=== PATIENT | male | born 1960 | race Caucasian/White ===

== ENCOUNTER 2017-05-27 20:32 | Inpatient (IN) | payer OTHER, MEDICARE ==
[~2017-05-27] VITALS: Ht 182.8 cm; Wt 101.8 kg
--- NOTE | ~2017-05-27 | PR ---
[place], [place] PROGRESS NOTE NAME: TREVON MIR UNIT #: [id number] ROOM: 310 DOCTOR: SHASHA RENTERIA MD BIRTHDATE: [birth year] DOS: 05/31/2017 CHIEF COMPLAINT: "I don't like that Depakote, it makes me sick, can we stop that please?" SUMMARY OF THE VISIT: The patient was interviewed in the dining area where he sat waiting for his breakfast. He was very vehement that he did not like taking the Depakote that he did not like how it made him feel. He still reports he is having continued sleep issues with difficulty falling asleep and staying asleep and is waking up tired. He does remain somewhat paranoid and suspicious and is guarded at times with his presentation. MENTAL STATUS: He is alert and oriented to person, place, but not necessarily totally to time. Mood does seem to be trending towards euthymia. Affect is more appropriate. There are no symptoms of drew or hypomania. There are no overt auditory hallucinations noted, but he does remain guarded, suspicious and delusional. Memory has mild gaps. PLAN: I will discontinue the Depakote as he is very vehement that he does not like the side effects that it causes. I will maximize out the Vraylar from 4.5 mg at bedtime to 6 mg at bedtime. I need to find out when he received his last Invega injection to determine whether or not we need to reload him now and then decide when will be the Invega Sustenna ____ every 3-month injection. We will engage in individual and ashley milieu activity, returning home or the least restrictive environment when stable. SHASHA RENTERIA MD CM:PNTRANS [id number] SHASHA RENTERIA MD 05/31/17 0959 interface
--- NOTE | ~2017-05-27 | PR ---
[place], [place] PROGRESS NOTE NAME: TREVON MIR UNIT #: [id number] ROOM: 310 DOCTOR: SHASHA RENTERIA MD BIRTHDATE: [birth year] DOS: 05/29/2017 CHIEF COMPLAINT: "I ain't sleep well." SUMMARY OF THE VISIT: The patient was interviewed as he sat in his room. He sat at the edge of his bed and he engaged in conversation. He was somewhat avoidant and he gave very superficial conversation, but he was mainly fixated on the fact that he tossed and turned throughout the night and did not sleep well. His thoughts tend to still be somewhat fragmented and disjointed. He convincingly denies medication side effects. MENTAL STATUS: He is alert and oriented to person, place and time. Mood does still seem to be somewhat labile and affect is inappropriate. He has a hard time completing a thought and he sometimes gets derailed. There is a great deal of thought processing difficulty and sparsity of thought. He does seem to be responding to internal stimuli. There is no mood lability. There is no hypomania or drew noted. Likewise, there are no medication side effects noted. Memory for the most part is intact. PLAN: I will continue to increase the Vraylar moving it from 3 mg at bedtime to 4.5 mg at bedtime with a target dose of 6 mg at bedtime in mind. I will change his Depakote from Depakote 500 mg 3 times a day to Depakote ER 2000 mg at bedtime. This should lessen any potential daytime sedation and increase the amount of sedation he receives at bedtime. I will also order p.r.n. Rozerem as a nonaddicting sleep aid and see if this measure allows him to sleep more adequately. We will engage him in individual and ashley milieu activity with the ultimate plan to return to the least restrictive environment when psychiatrically stable. SHASHA RENTERIA MD CM:PNTRANS [id number] SHASHA RENETRIA MD 05/29/17 1145 interface
--- NOTE | ~2017-05-27 | DS ---
[place], [place] DISCHARGE SUMMARY NAME[facility] [id number] UNIT #: [id number] ROOM: 310 DOCTOR: SHASHA RENTERIA MD BIRTHDATE: [birth year] DOS: 06/02/2017 CHIEF COMPLAINT: "I just started hearing voices." HISTORY OF PRESENT ILLNESS: This is a 57-year-old white male who is readmitted to the [facility]. He presented to the emergency room at [facility] complaining of increased and persistent auditory hallucinations. The voices have been commenting on his behavior and telling him to do chores and other things around the house. They have been interrupting his sleep, so that he is having himself so preoccupied he is unable to function. He states sometimes he feels like he is [place] and a bad biker man or a lump inspector that has been shot and left for along the highway. He was very bizarre upon admission. He was religiously preoccupied and delusional. He was readmitted now to stabilize on medication, returning home once stable. PAST MEDICAL HISTORY: Remarkable for coronary artery disease, chronic kidney disease stage 3, diabetes, hyperlipidemia, hypertension, hypothyroidism, obesity, vitamin D deficiency, nicotine dependence as well as a lengthy history of schizoaffective disorder. SUMMARY OF HOSPITAL COURSE: The patient was admitted to the unit where I lowered his Remeron from 30 to 15 mg at bedtime to improve his sleep dramatically. I started him on Vraylar 1.5 mg at bedtime to augment the Invega. He was receiving an Invega long-acting decanoate prep that was every 3 months and this seemed not to be as effective as the monthly Invega Sustenna. For this reason, I restarted him on oral Invega just to make certain that he was tolerating it well and eventually reloaded him with Invega Sustenna 234 mg. Depakote was maintained throughout his stay; however, he did request that I discontinued that as he did not like how the Depakote made him feel. Given the fact that he was on both the Vraylar and the Invega and these seemed to be much more effective at breaking the psychosis, I had no problem discontinuing his Depakote. The Vraylar was gradually increased to its maximum dose of 6 mg at bedtime. With the combination of these 2 antipsychotics, his psychosis broke. He no longer was religiously preoccupied. He was sleeping through the night. He was engaging in goal-directed conversation and he made extremely good plans for the future and voiced a willingness and a readiness to return home. He convincingly denied tardive dyskinesia, extrapyramidal symptoms, sedation or somnolence. MENTAL STATUS AT DISCHARGE: The patient was alert and oriented times 3. Mood was euthymic. Affect appropriate. There were no symptoms of drew or hypomania. There were no overt auditory or visual hallucinations. No delusions, no paranoia. Short, intermediate, and long-term memory were intact. FINAL DIAGNOSES: Schizoaffective disorder with acute exacerbation. PLAN: All of his prescriptions have been E-scribed to [facility] in [place], [place]. He will have followup at [facility]. [place], [place] DISCHARGE SUMMARY NAME: TREVON MIR UNIT #: [id number] ROOM: 310 DOCTOR: SHASHA RENTERIA MD BIRTHDATE: [birth year] SHASHA RENTERIA MD CM:VIOLETTE 3 SHASHA RENTERIA MD 06/02/1734 interface
--- NOTE | ~2017-05-27 | PR ---
[place], [place] PROGRESS NOTE NAME: TREVON MIR UNIT #: [id number] ROOM: 310 DOCTOR: SHASHA RENTERIA MD BIRTHDATE: [birth year] DOS: 06/01/2017 CHIEF COMPLAINT: "I think I'm better, I want to go back home with my ." SUMMARY OF THE VISIT: The patient was interviewed in the dining area where he sat waiting for his breakfast. He engaged readily in conversation. He is reporting that he is sleeping better and overall is feeling better. He seems more goal directed in his speech this morning. He convincingly denies any medication side effects and is happy that the Depakote has been discontinued. MENTAL STATUS: He is alert and oriented with some mild time gaps. Mood does seem to be strongly trending towards euthymia. Affect is more appropriate. There is no drew or hypomania. His delusional system seems to be lessening in frequency and intensity. There are no suicidal or homicidal thoughts. Memory for the most part is intact. PLAN: I will maintain his current psychotropic regimen, continue to engage in individual and ashley milieu activity, finalize discharge plans and then discharge home when stable. SHASHA RENTERIA MD CM:PNTRANS [id number] SHASHA RENTERIA MD 06/01/17 0835 interface
--- NOTE | ~2017-05-27 | WRIGHTHP ---
[place], [place] PATIENT HISTORY AND PHYSICAL EXAM NAME: TREVON MIR UNIT #: [id number] ROOM: 310 DOCTOR: SHASHA RENTERIA MD BIRTHDATE: [birth year] DOS: 05/28/2017 CHIEF COMPLAINT: "I just started hearing voices." HISTORY OF PRESENT ILLNESS: This is a 57-year-old white male who is readmitted to the [facility]. The patient presented to the emergency room complaining of increased and persistent auditory hallucinations. The voices have been commenting on his behavior and telling him to do chores and do other things around the house. They have been interrupting his sleep, so that he is having problems falling asleep, staying asleep, and he has been waking up early. He has found himself increasingly preoccupied and unable to function and even attend to his basic ADLs. He states he sometimes feels like he is [place], a bad biker man or a loom starter that has been shot and left for , but lives in the [place]. He is very religiously preoccupied and very delusional. He is admitted now to attempt to restabilize on medication, rule out organic factors and engage in individual and ashley milieu activity. PAST MEDICAL HISTORY: Remarkable for coronary artery disease, chronic kidney disease stage 3, diabetes, hyperlipidemia, hypertension, hypothyroidism, obesity, vitamin D deficiency, nicotine dependence and a lengthy history of schizoaffective disorder. MENTAL STATUS: The patient is alert and oriented to person, place, and time. Mood is overwhelmingly depressed with anxious overtones. He endorses significant delusions as well as significant auditory hallucinations. He, however, denies any suicidal thoughts or homicidal thoughts. Memory for the most part is intact. DIAGNOSIS: Schizoaffective disorder. PLAN: I will lower his Remeron from 30 to 15 mg at night to further aid sleep while increasing his Vraylar from 1.5 to 3 mg at bedtime. His Depakote level was subtherapeutic at 15 leading me to believe he has been somewhat noncompliant with his meds. I will still increase his Depakote from 500 mg twice a day to 500 mg 3 times a day. He has been receiving the Invega injection that is given every 3 months and is due for an injection later this month. We will consider reloading him then with the Invega long-acting decanoate form before he is discharged. We will engage in individual and ashley milieu activity with the plan to return home when stable. [place], [place] PATIENT HISTORY AND PHYSICAL EXAM NAME: TREVON MIR UNIT #: [id number] ROOM: 310 DOCTOR: SHASHA RENTERIA MD BIRTHDATE: [birth year] SHASHA RENTERIA MD CM:HISPHYS:PATIENT HISTORY AND PHYSICAL EXAMINATION [id number] SHASHA RENTERIA MD 05/28/17 1144 interface
[~2017-05-27 20:32] MED LIST: ANBESOL MM; ASPIRIN ADULT L81 M1 PO; CLOZAPINE200 MG PO; DIVALPROEX SOD500 MG PO; Depakote ER500 MG PO; FENOFIBRATE120 MG PO; INVEGA SUSTENN156 MG IM; INVEGA6 MG PO; LIPITOR40 MG PO; LISINOPRIL5 MG PO; LOPRESSOR25 MG PO; METOPROLOL TART50 M1 PO; MIRTAZAPINE15 M2 PO; PLAVIX75 M1 PO; TRIHEXYPHENIDYL2 M3 PO; VISTARIL25 M2 PO; VITAMIN D50000 I3 PO; ZIPRASIDONE HCL80 M1 PO
--- NOTE | 2017-05-27 21:45 | NUR ---
TREVON MIR a 57 year old M admitted via stretcher from the ADMITTING as a voluntary admission. Arrived on unit at 2139. ALLERGIES: IODINE, IVP DYE. Vital signs are: [id number] 135/68. The client signed the following forms with stated understanding: Authorization For The Release of Medical Information, Clothing List, Consent to Voluntary Admission and Hospitalization, Consent and Release Forms/Receipt of Rights, Acknowledgement of Advance Directive Information, Behavioral Health Consent Form, and Informed Consent of Medications. [facility]. A search was conducted and hazardous articles were removed. Client was oriented to the unit. PATRICIA FAM
[2017-05-27 21:47] VITALS: BP 135/68
[2017-05-27] MEDS ORDERED: FENOFIBRATE MI134 MG PO (23:13)
[2017-05-27] MEDS ORDERED: REMERON30 M1 PO (23:14)
[2017-05-27] MEDS ORDERED: Synthroid,Levo25 MCG PO (23:15)
--- NOTE | 2017-05-27 23:35 | NUR ---
PT ORIENTED X4. BROUGHT PATIENT TO [facility] WITH A CHIEF COMPLAINT OF "RACING THOUGHTS" AND INTERNAL VOICES TELLING THE PATIENT TO "DO CHORES." PT HAS A LONG HISTORY OF SCHIZOAFFECTIVE DISORDER. PT EXHIBITS SOME PRESSURED SPEECH. AFFECT IS APPROPRIATE TO CONTEXT. PT DENIES SI, HI, BUT DOES REPORT PARANOID DELUSIONS THAT "SOMETHING MAY HAPPEN TO ME, MAYBE MY HEART." PT IS PLEASANT, REPORTING A POSITIVE OUTLOOK ON LIFE WITH SOME UNDERLYING DEPRESSION RELATED TO HIS UNABILITY TO CONTROL HIS RACING THOUGHTS. PT IS PLEASANT, COOPERATIVE, AND ABLE TO ANSWER ALL QUESTIONS APPROPRIATELY. PT IS CURRENTLY REPORTING SYMPTOMS OF ANXIETY. NURSE EDUCATED PT REGARDING PURPOSE OF MEDICATIONS ORDERED. PT VERBALIZED UNDERSTANDING AND REPORTED THE NECESSITY OF TAKING ALL PRESCRIBED MEDICATIONS.
--- NOTE | 2017-05-27 23:57 | NUR ---
PT REPORTS INCREASE IN ANXIETY. PRN ATIVAN TO BE ADMINISTERED. CONTINUE TO MONITOR FOR MEDICATION EFFECTIVENESS.
[2017-05-28 02:02] VITALS: BP 135/68
--- NOTE | 2017-05-28 02:53 | NUR ---
ATIVAN EFFECTIVE. PT RESTING QUIETLY WITH EYES SHUT
--- NOTE | 2017-05-28 03:06 | NUR ---
24HR CHART CHECKS COMPLETE
--- NOTE | 2017-05-28 06:13 | NUR ---
PT SLEPT >7HRS, UNINTERRUPTED
[2017-05-28 07:26] LABS: BASO # 0.1 10*3/uL (0.0-0.1); BASO % 0.8 % (0.0-1.0); EOS # 0.1 10*3/uL (0.0-0.4); EOS % 1.5 % (1.0-4.0); HEMATOCRIT 36.2 % (42.0-52.0); HEMOGLOBIN 12.5 g/dl (14.0-18.0); LYMPH # 1.7 10*3/uL (1.3-4.4); LYMPH % 27.4 % (27.0-41.0); MEAN CELL VOLUME 92.3 fl (80.0-94.0); MEAN CORPUSCULAR HGB 31.9 pg (27.0-31.0); MEAN CORPUSCULAR HGB CONC 34.5 g/dl (33.0-37.0); MONO # 0.7 10*3/uL (0.1-1.0); MONO % 10.7 % (3.0-9.0); NEUT # 3.6 10*3/uL (2.3-7.9); NEUT % 59.4 % (47.0-73.0); PLATELET COUNT AUTOMATED 165 10*3/uL (130-400); RED BLOOD COUNT 3.92 10*6/uL (4.50-5.90); RED CELL DISTRI WIDTH 12.4 % (0-14.5); WHITE BLOOD COUNT 6.1 10*3/uL (4.8-10.8)
[2017-05-28 07:48] LABS: CREATININE 1.92 mg/dL (0.70-1.30); POTASSIUM 4.3 mmol/L (3.5-5.1)
[2017-05-28 07:55] LABS: THYROID STIM HORMONE (HS) 3.11 uIU/ml (0.358-4.75)
[2017-05-28 08:00] VITALS: BP 101/64
[2017-05-28 08:46] LABS: VITAMIN D, 25-HYDROXY 34.8 ng/mL (30-100)
[2017-05-28 09:23] LABS: BILIRUBIN NEGATIVE (NEGATIVE); BLOOD NEGATIVE (NEGATIVE); CLARITY CLEAR (CLEAR); COLOR YELLOW (YELLOW); GLUCOSE NEGATIVE (NEGATIVE); KETONE NEGATIVE (NEGATIVE); LEUKO ESTERASE NEGATIVE (NEGATIVE); NITRITE NEGATIVE (NEGATIVE); SPECIFIC GRAVITY 1.015 (1.005-1.030)
--- NOTE | 2017-05-28 09:25 | NUR ---
PHYSICAL THERAPY PAtient evaluated on 3, full evalution to follow. Continue with PT as per plan of care with fall and unit three precautions. Home with as prior with home health RN prn. PAtient is low complexity via chart review, tests and evaluation [id number]. Thank you for this referral. nini Jackson,PT
--- NOTE | 2017-05-28 11:22 | NUR ---
Goals/Exercise/Reminiscing Patient was in attendence as well as actively participated. Patient interacted well with other patients showing no signs of anxiety. Patient did not report any paranoid delusions while in group
--- NOTE | 2017-05-28 11:46 | NUR ---
Occupational Therapy evaluation completed this date on 3 with full eval to follow. Precautions include 3N, delusional thoughts, impaired ADLs s/p CVA, low complexity level 08334. Recommend OT per POC and return home with upon d/c. Thank you for this referral. Glenny Mayer OTR/L
--- NOTE | 2017-05-28 12:23 | NUR ---
CLINICALS GIVEN TO MEG AT [facility]. APPROVED STAY THROUGH WEDNESDAY WITH NEXT REVIEW DUE WEDNESDAY.
[2017-05-28 20:04] VITALS: BP 107/62
--- NOTE | 2017-05-29 01:29 | NUR ---
PT REQUESTED "SOMETHING FOR A COUGH". TEASALON PERLE WAS GIVEN AT THIS TIME PER PRN ORDER. PT HAS A DRY NON PRODUCTIVE COUGH. WILL MONITOR FOR EFFECTIVENESS OF MEDICATION.
--- NOTE | 2017-05-29 04:53 | NUR ---
24 HR chart check completed.
--- NOTE | 2017-05-29 05:46 | NUR ---
PT SLEPT APPROXIMATELY 6 HOURS THIS SHIFT. NO S/S OF DISTRESS NOTED. NO C/O PAIN. MEDICATION COMPLIANT. A&O X 3. INTERACTIVE WITH PERIODS OF PARANOIA. AUDITORY HALLUCINATIONS TELLING HIM TO DO CHORES. PT UP AND DOWN OUT OF BED AND SITTING IN QUIET ROOM. SEE [facility] FLOWSHEET FOR SPECIFIC MONITORING. Q15 MINUTE SAFETY CHECKS MAINTAINED.
[2017-05-29 07:51] VITALS: BP 110/64
--- NOTE | 2017-05-29 11:51 | NUR ---
DR. HEREDIA AND DR. DUMAS ON UNIT TO SEE PT AT THIS TIME.
--- NOTE | 2017-05-29 15:37 | NUR ---
PT IS ALERT AND ORIENTED TO PERSON, PLACE, TIME AND SITUATION. MEMORY APPEARS INTACT. RESPIRATIONS EASY ON ROOM AIR. MOOD IS STABLE, AFFECT IS INAPPROPRIATE AT TIMES. SPEECH IS OF NORMAL VOLUME, RAPID AT TIMES WITH WORD CLANGING NOTED. FLIGHT OF IDEAS NOTED. PT REMAINS CALM AND COOPERATIVE WITH STAFF. MEDICATION COMPLIANT. PT REPORTS AUDITORY HALLUCINATIONS, STATES "YES, I HEAR VOICES." WHEN QUESTIONED WHAT THE VOICES ARE SAYING, PT STATES "I SING THIS SONG BY THE BEATLES TO OVERRIDE THEM." PT THEN BEGAN SINGING. PT DENIES SI/HI. PT HAS VOICED VARIOUS GRANDIOSE DELUSIONS THROUGHOUT THE SHIFT, MAKING STATEMENTS SUCH "IT'S HARD BEING THE YOVANY OF [employer]" AND "I MAKE MILLIONS, AND MILLIONS AND MILLIONS AND BILLIONS." REALITY PRESENTED BY STAFF WHEN THESE DELUSIONS OCCUR AND PT STATES "YES I KNOW I'M IN THE HOSPITAL. I DON'T BELONG HERE THOUGH." PT ALSO CAME TO NURSES STATION AND STATES TO THIS NURSE "I THINK ABOUT GUNS A LOT AT HOME. I THINK SOMEONE SHOT ME AND LEFT ME FOR . BUT THEY DIDN'T. I'M OKAY. I JUST THINK LIKE THAT SOMETIMES." PT STATES THESE PARANOID THOUGHTS CONTINUE TO OCCUR AT TIMES, PT STATES "I LIKE TO LISTEN TO MUSIC." CD PLAYER/RADIO PROVIDED FOR PT FOR RELAXATION WITH SUPERVISON. PT IS AMBULATORY WITH STEADY GAIT, INDEPENDENT WITH ADLS, FEEDS SELF, DISPLAYS GOOD APPETITE WITH ADEQUATE FLUID INTAKE. NO DISTRESS NOTED. Q15 MIN SAFETY CHECK MAINTAINED, REFER TO [facility] FLOWSHEET FOR SPECIFIC MONITORING.
--- NOTE | 2017-05-29 18:00 | NUR ---
PT GIVEN TESSALON PEARLE ONE CAP PO AT THIS TIME PER PT REQUEST FOR C/O COUGH.
[2017-05-29 20:00] VITALS: BP 110/57
--- NOTE | 2017-05-30 00:16 | NUR ---
24 HR chart check completed.
--- NOTE | 2017-05-30 00:44 | NUR ---
PT C/O INABILITY TO SLEEP & WAS MEDICATED WITH ROZEREM 8 MG PO @ 2157 WHICH WAS EFFECTIVE & PT HAS BEEN SLEEPING QUIETLY SINCE 2229.
--- NOTE | 2017-05-30 06:46 | NUR ---
ROZEREM WAS EFFECTIVE & PT STATED THAT HE SLEPT BETTER THAN THE NIGHT BEFORE. NOTED TO SLEEP PAST 0 & WAS UP X3 BRIEFLY & SPOKE TO STAFF. STATED THAT HE THINKS ABOUT TOO MANY THINGS & HIS MIND DOESN'T REST THAT WELL. USED BATHROOM INDEPENDENTLY & CONTINENT OF URINE X 2. COMPLIANT WITH AM MEDICATION.
[2017-05-30 07:47] VITALS: BP 117/59
--- NOTE | 2017-05-30 10:10 | NUR ---
DR. ALCARAZ AND DR. DUMAS ON UNIT TO SEE PT AT THIS TIME.
--- NOTE | 2017-05-30 15:32 | NUR ---
PT IS ALERT AND ORIENTED TO PERSON, PLACE, TIME AND SITUATION. MEMORY APPEARS TO BE INTACT. RESPIRATIONS EASY ON ROOM AIR. MOOD IS STABLE, AFFECT IS APPROPRIATE. SPEECH IS WNL AND COHERENT, ABLE TO MAKE NEEDS KNOWN WITHOUT DIFFICULTY. PT DENIES SI/HI. PT REPORTS AUDITORY HALLUCINATIONS AND "IMAGES OF GRANDIOR." PT STATES "I FEEL LIKE I'M BETTER THAN EVERYONE ELSE." PT CONTINUES TO VOICE VARIOUS DELUSIONS THROUGH OUT THE DAY. 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 PT CONTINUES TO PRESENT WITH FLIGHT OF IDEAS AND WORD CLANGING, PT MAKES STATEMENTS SUCH "I'M THE WONDER MAN, LIKE WONDER BREAD, I'M WONDERFUL." AND "OUR FOOTBALL TEAM IS THE BLUE DEVILS, I'M THE DEVILS MAN, THE DEVIL WEARS RED." PT IS MEDICATION COMPLIANT WITHOUT DIFFICULTY. AMBULATORY WITH STEADY GAIT, INDEPENDENT WITH ADLS, CONTINENT OF BOWEL AND BLADDER, FEEDS SELF, DISPLAYS GOOD APPETITE WITH ADEQUATE FLUID INTAKE. NO DISTRESS NOTED. Q15 MIN SAFETY CHECKS CONTINUE PER POLICY. REFER TO [facility] FLOWSHEET FOR SPECIFIC MONITORING.
--- NOTE | 2017-05-30 16:51 | NUR ---
SHIFT CHART CHECK COMPLETED.
[2017-05-30 20:07] VITALS: BP 110/52
--- NOTE | 2017-05-30 21:09 | NUR ---
24 HR chart check completed.
--- NOTE | 2017-05-31 05:11 | NUR ---
PT HAS BEEN OBSERVED ON Q 15 MIN CHECKS & WAS NOTED TO BE SLEEPING IN BED @ 2230. HAS BEEN UP X 4 & WENT TO QUIET ROOM & SAT IN A CHAIR & HAS FALLEN ASLEEP WHILE SITTING IN THE CHAIR. PT APPEARS DROWSY. STATED THAT HE NAPS THROUGHOUT THE DAY & CANT SLEEP THAT WELL AT NIGHT BECAUSE HE "THINKS ABOUT ALOT OF THINGS". PT ENCOURAGED TO ATTEND ACTIVITIES THROUGHOUT THE DAY & TRY TO REMAIN AWAKE SO HE CAN SLEEP BETTER AT NIGHT. HAS SLEPT APPROX 4 HOURS THROUGHOUT THE NIGHT.
--- NOTE | 2017-05-31 07:53 | NUR ---
05/28/17 Afternoon Coping Skills Patient was in attendence for group.Patient participated showing no signs of anxiety
--- NOTE | 2017-05-31 07:53 | NUR ---
PHYSICAL THERAPY Adam was seen this AM 1:1 for his therapy session. All Pt's transfer and gait with independent no LOB through treatment. Pt was independent from his room down to the day room for his breakfast 90' independent no LOB. With pt in sitting teaching bilaterasl hamstring stretching. Start with one leg at a time up in another chair and hold to tolerance then switch working bilateral hamstring and did very well. Passive into o extension this AM. CRISTINE ABEL LICENSING AND REGISTRATION DIRECTOR.
[2017-05-31 08:12] VITALS: BP 117/58
--- NOTE | 2017-05-31 09:43 | NUR ---
PATIENT SEEN 1:1 15 MINUTES THIS DATE. PATIENT IDENTIFIED BY NAME AND DATE OF . PATIENT COMPLETED ACTVIITY TO TOLERANCE WITH FREQUENT REDIRECTION TO MAINTAIN ATTENTION TO TASK. PATIENT COMPLETED LUE AROM ALL PLANES 2 SETS X 10 REPS SEATED WITH FREQUENT REST BREAKS AND C/O FATIGUE. UE AROM INCLUDED SHOULDER FLEX/EXT, SHOULDER RETRACT/PROTRACT, ELBOW FLEX/EXT, WRIST FLEX/EXT, AND HAND FLEX/EXT WITH MOD VERBAL CUES TECHNIQUE AND FORM. PATIENT VERBALIZING THAT WAS ALL HE COULD DO TODAY. MIKE ORDONEZ/Mc
--- NOTE | 2017-05-31 10:01 | NUR ---
Spoek with pt. mom per son permission who states that pt. gets shots every 3 months and that she thinks he may need them more often. SW will let Dr. arvizu know. RUPAL attempted to reach pt , but the number in chart is pt's mother. pt mother, Kassy to tell pt , Brynn, to call RUPAL.
--- NOTE | 2017-05-31 13:07 | NUR ---
Goals/Exercise/Positive Thoughts & Affirmations Patient was in attendence as well as participated in group. Patient also took notes about group. Patient became upset at one point over missing his grandson. Patient started to cry. Patient then apologized for crying saying "men dont cry." assured patient men do cry. OT Abner came into room at that point and AC requested he input if men cry or not. OT Abner was very positive with patient assuring him that men do have feelings are sensitive and cry. Patient seemed reassured after speaking with Abner
--- NOTE | 2017-05-31 13:45 | NUR ---
INSURANCE HAS APPROVED THROUGH 06-02-17 WITH REVIEW DUE SAME DAY.
--- NOTE | 2017-05-31 14:22 | NUR ---
RUPAL rec'd pc from pt. -Brynn in regards to pt's status and when d/c may be. pt Charli states that she can come up and transport pt. home when ready. Dr. Neil looking at possibly by the end of the week.
--- NOTE | 2017-05-31 15:08 | NUR ---
Positive Self-Talk Patient was in attendence for group as well as participated. Patient can think of many positive things about himself bringing humor with it. Patient very positive,upbeat showing no signs of anxiety or reports of paranoid delusions
--- NOTE | 2017-05-31 16:18 | NUR ---
A/O X3, PLEASANT, COOPORATIVE, INCOTNROL, PARTICIPATING, MED COMPLAINT, C/O ABOUT THE INVEGA SUSTATANA SHOT, DENIES SI/HI, DENIES ANY HALLUCINATIONS, CONTINENT, SHOWERED, TALKS SOFTLY.
[2017-05-31 19:48] VITALS: BP 123/69
--- NOTE | 2017-06-01 06:19 | NUR ---
24 HR chart check completed.
--- NOTE | 2017-06-01 06:23 | NUR ---
PT HAS BEEN OBSERVED ON Q 15 MIN CHECKS & HAS SLEPT QUIELTY THROUGHOUT THE SHIFT PAST 2114 WITH A FEW BRIEF AWAKENINGS & AMBULATING IN THE JARA BRIEFLY. HAS RETURNED TO HIS BED & SLEPT BETTER THAN THE PAST 2 NIGHTS.
[2017-06-01 07:55] VITALS: BP 123/61
--- NOTE | 2017-06-01 08:30 | NUR ---
SOREN BIANCHI ELECTRICIAN RADIO ON UNIT TO SEE PATIENT.
--- NOTE | 2017-06-01 09:32 | NUR ---
PATIENT REFUSED MORNING BP MEDICATION, BP 109/74.
--- NOTE | 2017-06-01 09:39 | NUR ---
PATIENT IN DAY ROOM AND DECLINED THERAPY THIS DATE STATING THAT HE WAS WORN OUT. WILL TRY BACK AT A LATER DATE. MIKE ORDONEZ/Mc
--- NOTE | 2017-06-01 10:30 | NUR ---
pt to be d/c'ed tomorrow via , ophelia. SW left for family to call and verify that 1pm will be a good time for pickup. SW spoke with pt and explained once again that he needs to take both his pills and get a shot because they each have a purpose of helping him with his health issues and his "thinking" issues. pt states "Ok, I think i need a shot once a month then". Tim passed his request along to Dr. arvizu.
--- NOTE | 2017-06-01 11:06 | NUR ---
PHYSICAL THERAPY Mr Muse seen this AM 1:1. Pt is independent with everything, ambulating the halls, in and out of his bed independent with no LOB. To and from the day room for his meals independent. This AM went over againg with act bilateral hamstring stretch and having no problem with this and no complaint of any pain, Adam said that he is to be D/C tomorrow. CRISTINE ABEL BUNG REMOVER.
--- NOTE | 2017-06-01 11:08 | NUR ---
PATIENT RECIEVED INVEGA SUSTAINA 234MG IM TO RIGHT DELTOID, TOLERATED WELL.
--- NOTE | 2017-06-01 11:33 | NUR ---
Holiday remenissing/orientation and goals Patient present and attended group with appropriate behavior. Patient at times tearful with discussion however easily redirected. Patient reports no paranoia throughout group.
--- NOTE | 2017-06-01 12:53 | NUR ---
PATIENT IS ALERT TO PERSON, PLACE AND TIME. MOOD IS ANXIOUS AT TIMES, PACES IN HALLWAY, RESPONDING TO INTERNAL STIMULI- TALKING TO UNSEEN OTHERS. HAVING AUDITORY HALLUICINATION. DENIES DELUSIONS OR PAIN. PATIENT INTERACTS WITH WITH NURSING STAFF AND PARTICIPATES IN GROUP SESSIONS. INDEPENDENT WITH ACTIVITIES OF DAILY LIVING, CONTINENT OF BOWEL AND BLADDER. AMBULATES WITH STEADY GAIT MEAL INTAKS ARE GOOD WITH ADEQUATE FLUIDS. Q 15 MINUTE SAFETY CHECKS. CONTINUE TO MONITOR FOR BEHAVIORS AND REDIRECT NEEEDED.
--- NOTE | 2017-06-01 13:01 | NUR ---
PATIENT IS ALERT AND ORIENT TO PERSON, PLACE AND TIME;M ABLE TO VOICE NEEDS. MOOD IS DEPRESSED AT TIMES. THOUGHT PROCESS IS GOAL DIRECTED AND BECOMING ORGANIZED. HAVING AUDITORY HALLUCINATIONS, STATES WITH VOICES ARE TALKING WITH HIS WHEN HE IS TALKING WITH NURSE. INDEPENDENT WITH ACTIVITIES OF DAILY LIVING, CONTINENT OF BOWEL AND BLADDER. AMBULATES WITH STEADY GAIT. MEAL INTAKES ARE GOOD WITH ADEQUATE FLUIDS. MEDICAITON COMPLIANT WITH EDUCATION PROVIDED. INTERACTIVES WITH STAFF AND OTHER PATIENTS, PARTICIPATES IN GROUP SESSION. Q 15 MINUTE SAFETY CHECKS MAINTAINED. CONTINUE TO MONITOR FOR INCREASED PARANOIA/HALLUCINATION AND REDIRECT NEEDED.
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
--- NOTE | 2017-06-01 15:05 | NUR ---
Coping skills Patient attended and participated in group. Patient able to answer questions appropriately and without becoming tearful. Patient did leave group half way through stating " something came up and I have to go." Patient did however come back in and out of activity room throughout group.
--- NOTE | 2017-06-01 16:09 | NUR ---
Shift chart check completed.
[2017-06-01 20:04] VITALS: BP 104/67
--- NOTE | 2017-06-01 21:29 | NUR ---
24 HR chart check completed.
--- NOTE | 2017-06-02 00:36 | NUR ---
PT REQUESTED & WAS MEDICATED WITH TYLENOL 650 MG PO @ 0033 FOR C/O BILATERAL LEG CRAMPS. RATED PAIN 10/10.
--- NOTE | 2017-06-02 06:29 | NUR ---
TYLENOL WAS EFFECTIVE TO RELIEVE PT LEG PAIN. HE WAS SLEEPING @ 2114 & HAS HAD APPROX 3 BRIEF AWAKENINGS. PT STATED THAT HE IS BEING DISCHARGED TODAY & HE IS HAPPY ABOUT THAT.
--- NOTE | 2017-06-02 07:13 | NUR ---
RUPAL met with pt. in regards to d/c today. pt. smiling and states, "I can't wait until 1pm, I am happy I get to go home today". pt. states that he spoke with his mother and and someone will be here to get him around 1pm. RUPAL let pt. know about the location change from [place] to [place] in June for his shot and pt states "you just need to write it down and tell whoever comes and gets me". RUPAL reasssurred pt. that everything will be written down and he will receive copies of it.
--- NOTE | 2017-06-02 07:17 | NUR ---
SW let Nurse More also know about the change in the shot location and make sure that whoever picks him to outline for them that change also. Address on d/c paperwork. Sw will probably be in family session still at that time and may not have an opportunity to speak with whoever picks him up. Nurse More to address.
--- NOTE | 2017-06-02 07:38 | NUR ---
SOREN BIANCHI CNP NOTIFIED OF PATIENT'S DISCHARGE TODAY.
[2017-06-02 07:51] VITALS: BP 120/63
[2017-06-02] MEDS ORDERED: INVEGA SUSTENN234 MG IM (07:57)
[2017-06-02] MEDS ORDERED: MIRTAZAPINE15 M2 PO (07:57)
[2017-06-02] MEDS ORDERED: VRAYLAR6 MG PO (07:57)
--- NOTE | 2017-06-02 10:42 | NUR ---
PHYSICAL THERAPY Adam seen this AM 1:1 for his physical therapy session. Pt is independent with his gait. Worked this visit on bilateral hamstring stretch into 0 extension with no pain with act quad set. Pt said that he is to be D/C home today. CRISTINE ABEL SPORTS TEAM MANAGER.
--- NOTE | 2017-06-02 11:01 | NUR ---
Stress/anger management, goals and trivia/orientation group Patient attended and participated in group. Patient displays increased anxiety when discussing stress in relation to returning home today. Patient cant wait to go home and go out to dinner. Patient unable to state realistic goals for coping and stress management once at home. Patient stayed for 30 minutes of 90 minute group stating " Im feeling anxious I just need to go to a quiet room."
--- NOTE | 2017-06-02 13:05 | NUR ---
PATIENT READY FOR DISCHARGE, FAMILY PRESENT, ALL DISCHARGE PAPERWORK REVIEWED AND SIGNED, ALL QUESTIONS ANSWERED. ALL BELONGING AND DISCHARGE PAPERWORK SENT WITH PATIENT AT THIS TIME. PATIENT ASSISTED TO WHEELCHAIR, STAFF ASSISTED PATIENT OFF UNIT WITH FAMILY TO PRIVATE VEHICLE AT THIS TIME.
--- NOTE | 2017-06-03 07:52 | NUR ---
PHYSICAL THERAPY CO-SIGN I approve of the Phyical Therapy notes written above. TITI STOKES PT
--- NOTE | 2017-06-03 08:03 | NUR ---
OCCUPATIONAL THERAPY CO-SIGN I approve of the Occupational Therapy notes written above. CRISTOPHER MEHTA OTR/Mc
== END 2017-06-02 13:15 | disposition home or self-care (01) | DRG 885 ==
LOC: 3N 20:32
PROVIDERS: ADMIT Psychiatry & Neurology Psychiatry
DX: F25.9 Schizoaffective disorder, unspecified (principal); E11.22 Type 2 diabetes mellitus with diabetic chronic kidney disease; N18.3 Chronic kidney disease, stage 3 (moderate); F23 Brief psychotic disorder; I25.10 Atherosclerotic heart disease of native coronary artery without angina pectoris; I12.9 Hypertensive chronic kidney disease with stage 1 through stage 4 chronic kidney disease, or unspecified chronic kidney disease; E03.9 Hypothyroidism, unspecified; E66.9 Obesity, unspecified; Z68.30 Body mass index [BMI] 30.0-30.9, adult; F31.30 Bipolar disorder, current episode depressed, mild or moderate severity, unspecified; E78.2 Mixed hyperlipidemia; F41.9 Anxiety disorder, unspecified; Z95.5 Presence of coronary angioplasty implant and graft; Z90.49 Acquired absence of other specified parts of digestive tract; Z87.891 Personal history of nicotine dependence; Z91.041 Radiographic dye allergy status; Z91.048 Other nonmedicinal substance allergy status; Z79.899 Other long term (current) drug therapy; Z79.82 Long term (current) use of aspirin

== ENCOUNTER 2017-07-05 19:54 | Inpatient (IN) | payer OTHER, MEDICARE ==
[~2017-07-05] VITALS: Ht 182.8 cm; Wt 96.3 kg
--- NOTE | ~2017-07-05 | PR ---
[place], [place] PROGRESS NOTE NAME: TREVON MIR UNIT #: [id number] ROOM: 317 DOCTOR: ALEJANDRO PARRA,ROBINSON BIRTHDATE: [birth year] DOS: CHIEF COMPLAINT: "I am doing better." SUBJECTIVE: The patient is seen this morning in the quiet room. He did engage in conversations, stating that he has been taking his medicines, feeling better, mood has been better, sleeping better. He is still somewhat tangential. Denies auditory or visual hallucinations. States that he needs pillowcase cutter when he leaves here. As per nurses' report, he is taking his medicines, eating his meals, has no behavioral issues and is redirectable. MENTAL STATUS EXAMINATION: The patient is alert, oriented to person, place and time. Fair eye contact. Speech still somewhat pressured and tangential, blunted affect. No drew or hypomania at present and no overt psychosis. PLAN: The patient is showing improvement on his current medicines, so we shall continue the same, continue his care and keep engaging him in ashley milieu. ROBINSON ALLEN MD CM:PNSEAN [phone] ROBINSON ALLEN MD 07/11/171331 interface
--- NOTE | ~2017-07-05 | PR ---
[place], [place] PROGRESS NOTE NAME: TREVON MIR UNIT #: [id number] ROOM: 317 DOCTOR: SHASHA RENTERIA MD BIRTHDATE: [birth year] DOS: 07/09/2017 CHIEF COMPLAINT: "I didn't get my shot yesterday, I would know, I hate needles." SUMMARY OF THE VISIT: The patient was interviewed as he sat in the quiet room. He had completed his breakfast and was quietly sitting there pensively thinking. He did report he is still believing that he is going to go into a [employer] and become famous. He is very grandiose and delusional. He is tolerating the Abilify well and I did verify that he did not receive his injection yesterday as planned. MENTAL STATUS: He is alert and oriented. Mood seems to be expansive and grandiose. Affect is inappropriate at times. He remains delusional and very psychotic. Memory is fairly well intact. PLAN: I will go ahead and order the Aristada 882 mg IM today. I have already put the order in for the July dose. We will continue to support and monitor, engage in individual and ashley milieu activity with the ultimate plan to return home or the least restrictive environment when psychiatrically stable. SHASHA RENTERIA MD CM:PNTRANS 1 SHASHA RENTERIA MD 07/09/1749 interface
--- NOTE | ~2017-07-05 | PR ---
[place], [place] PROGRESS NOTE NAME: TREVON MIR UNIT #: [id number] ROOM: 317 DOCTOR: MATILDA LAWS,MY BIRTHDATE: [birth year] DOS: 07/07/2017 CHIEF COMPLAINT: "I feel really wonderful, I am like a new person here." SUMMARY OF THE VISIT: The patient was interviewed in the hallway today. The patient said he does not know if he ever been on Abilify in the past. States he "love getting out of the area" and hopes he would get to stay here until after [place]. The patient admits to "always hear voices in my head with some good days and some bad days." Said he slept okay last night because his roommate snored, but he got Vistaril for anxiety and it worked well for him. MENTAL STATUS: The patient is alert and oriented to person, place and time. Mood does seem to be depressed with anxious overtones; however, improving. Affect is appropriate. There are some auditory hallucinations. No evidence of visual hallucinations or delusions. For the most part memory is intact. PLAN: We will load him with Aristada 80 mg IM every 30 days starting tomorrow 07/08/2017. We will continue p.o. Abilify 20 mg QD until achieved therapeutic aipiprozole level in attempt to relieve patient's psychosis and depression. We will continue to engage the patient in individual and ashley milieu with the ultimate plan is to discharge home when the patient is psychiatrically stable. MY MATILDA, DO SHASHA RENTERIA MD CM:PNTRANS [id number] MY MATILDA DO 07/09/17 0721 interface
--- NOTE | ~2017-07-05 | PR ---
[place], [place] PROGRESS NOTE NAME: TREVON MIR UNIT #: [id number] ROOM: 317 DOCTOR: ALEJANDRO PARRA,ROBINSON BIRTHDATE: [birth year] DOS: CHIEF COMPLAINT: "I am feeling better." SUBJECTIVE: The patient is seen today in dining area and later in his room, resting in bed. He readily engaged in conversation, reported that he has long history of psychiatric treatment and he has been on different medicines in the past. He got a shot of Aristada yesterday. He reports that he has been feeling better and the fact that he is away from the stressors and is able to rest here. He has been compliant with his medicines, tolerating medicines well. He states that he did sleep okay last night and had his breakfast and lunch. MENTAL STATUS EXAMINATION: The patient is alert, awake, oriented to person, place and time. Fair eye contact. Mood trending towards euthymia. Affect inappropriate at times. He is still very grandiose and delusional. PLAN: The patient needs further stabilization, so we shall continue his medicines, continue his care and try and engage him in ashley milieu as he is more stable. ROBINSON ALLEN MD CM:PNTRANS [phone] ROBINSON ALLEN MD 07/10/17 1309 interface
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
--- NOTE | ~2017-07-05 | PR ---
[place], [place] PROGRESS NOTE NAME: TREVON MIR UNIT #: [id number] ROOM: 317 DOCTOR: ALEJANDRO PARRA,ROBINSON BIRTHDATE: [birth year] DOS: CHIEF COMPLAINT: "I am feeling much better." SUBJECTIVE: The patient is seen this morning in dining area and later in a quiet room. He readily engaged in conversation, stating that he is feeling better, mood has improved, sleep is better, appetite is okay. He has been coming to dining area and socializing, though he likes to be alone at times. Denies auditory and visual hallucinations and has no other questions at present. As per nurses' report, he has been compliant with his medicines and has no behavioral issues. MENTAL STATUS EXAMINATION: The patient is awake, alert, oriented to person, place and time, good eye contact. Speech is normal rate, tone. Mood trending towards euthymia. Affect somewhat brighter. No drew or hypomania and no overt psychosis at present. PLAN: The patient is showing improvement, so we shall continue his current medicines, continue his care and keep engaging him in ashley milieu. ROBINSON ALLEN MD CM:RILEY [phone] ROBINSON ALLEN MD 07/12/17 1015 interface
--- NOTE | ~2017-07-05 | WRIGHTHP ---
[place], [place] PATIENT HISTORY AND PHYSICAL EXAM NAME[id number] UN[facility] #: [id number] ROOM: 312 DOCTOR: SHASHA RENTERIA MD BIRTHDATE: [birth year] DOS: 07/06/2017 INITIAL PSYCHIATRIC EVALUATION CHIEF COMPLAINT: Everyone is out to get me, I just had to get in here to be safe." HISTORY OF PRESENT ILLNESS: This is a 57-year-old white male who is known to us from previous admissions to the [facility]. He presents now stating that he has been increasingly more depressed over the last several weeks as well as having increased paranoia. He feels that everyone is out to get him and he sees everyone as carrying a gun these days. He admits to increasing depression with poor sleep with difficulty falling asleep, sleep continuity disturbance, hand bunch maker awakening, anergia, anhedonia, hopeless, helpless feelings. Additionally, he reports overwhelming anxiety and states that the only thing that has worked for him has been Ativan in the past. He is admitted now to rule out organic factors, to stabilize on medication, returning to the least restrictive environment when stable. PAST MEDICAL HISTORY: Remarkable for coronary artery disease, history of CVA, chronic kidney disease stage 3, diabetes, hyperlipidemia, hypertension, hypothyroidism, vitamin D deficiency, obesity and nicotine abuse. MENTAL STATUS: The patient is alert and oriented to person, place and time. Mood does seem to be depressed with anxious overtones. He does endorse psychosis with increased paranoia. For the most part memory is intact. DIAGNOSIS: Schizoaffective disorder. PLAN: At the present time, I will discontinue his Vraylar due to ineffectiveness. He is receiving Invega Sustenna, which at this point I have to question its efficacy. I will start him on Abilify 20 mg a day in the hopes of stabilizing him on Aristada as another long-acting decanoate form of an antipsychotic. Rather than utilizing an addicting agent such as Ativan, I will increase his hydroxyzine dose from 50 mg twice a day to 50 mg 4 times a day in an effort to lessen his anxiety. We will engage him in individual and ashley milieu activity with the ultimate plan to return to the least restrictive environment when stable. [place], [place] PATIENT HISTORY AND PHYSICAL EXAM NAME: TREVON MIR UNIT #: [id number] ROOM: [facility] DOCTOR: SHASHA RENTERIA MD BIRTHDATE: [birth year] SHASHA RENTERIA MD CM:HISPHYS:PATIENT HISTORY AND PHYSICAL EXAMINATION [phone] SHASHA RENTERIA MD 07/06/17 1020 interface
[~2017-07-05 19:54] MED LIST changes: +FENOFIBRATE MI134 MG PO; +INVEGA SUSTENN234 MG IM; +REMERON30 M1 PO; +Synthroid,Levo25 MCG PO; +VRAYLAR6 MG PO
[2017-07-05] MEDS ORDERED: INVEGA TRI546 MG/1.7 IM (20:18)
[2017-07-05] MEDS ORDERED: BENZTROPINE MESY1 MG PO (20:19)
[2017-07-05] MEDS ORDERED: VISTARIL50 MG PO (20:20)
[2017-07-05] MEDS ORDERED: D3-20002000 UNIT PO (20:21)
[2017-07-05] MEDS ORDERED: MEN'S ONE DAIL1 EACH PO (20:21)
[2017-07-05] MEDS ORDERED: IRON325 M3 PO (20:23)
[2017-07-05] MEDS ORDERED: REMERON30 M1 PO (22:12)
[2017-07-05] MEDS ORDERED: INVEGA SUSTENN234 MG IM (22:16)
[2017-07-05 22:55] VITALS: BP 109/63
[2017-07-06 07:50] VITALS: BP 108/62; BP 96/60
[2017-07-06 08:08] LABS: BASO % 0.5 % (0.0-1.0); EOS # 0.1 10*3/uL (0.0-0.4); EOS % 2.2 % (1.0-4.0); HEMATOCRIT 40.5 % (42.0-52.0); LYMPH # 2.4 10*3/uL (1.3-4.4); MEAN CELL VOLUME 87.7 fl (80.0-94.0); MEAN CORPUSCULAR HGB 30.3 pg (27.0-31.0); MEAN CORPUSCULAR HGB CONC 34.6 g/dl (33.0-37.0); MEAN PLATELET VOLUME 9.7 fl (9.6-12.3); MONO # 0.4 10*3/uL (0.1-1.0); MONO % 5.9 % (3.0-9.0); NEUT % 51.1 % (47.0-73.0); PLATELET COUNT AUTOMATED 244 10*3/uL (130-400); RED BLOOD COUNT 4.62 10*6/uL (4.50-5.90); RED CELL DISTRI WIDTH 12.1 % (0-14.5)
[2017-07-06 08:38] LABS: CREATININE 1.61 mg/dL (0.70-1.30)
[2017-07-06 08:48] LABS: THYROID STIM HORMONE (HS) 1.42 uIU/ml (0.358-4.75); TOTAL PROTEIN 8.1 gm/dL (6.4-8.2)
[2017-07-06 20:24] VITALS: BP 136/66
[2017-07-06 21:18] LABS: BILIRUBIN NEGATIVE (NEGATIVE); BLOOD NEGATIVE (NEGATIVE); CLARITY SL CLOUDY (CLEAR); COLOR YELLOW (YELLOW); GLUCOSE NEGATIVE (NEGATIVE); KETONE NEGATIVE (NEGATIVE); LEUKO ESTERASE NEGATIVE (NEGATIVE); NITRITE NEGATIVE (NEGATIVE); SPECIFIC GRAVITY <= 1.005 (1.005-1.030); UROBILINOGEN 0.2 E.U./dl (0.2-1.0)
[2017-07-06 21:22] LABS: URINE AMPHETAMINES < 1000 (1000ng/ml); URINE BARBITURATES < 200 (200ng/ml); URINE BENZODIAZEPINES < 200 (200ng/ml); URINE CANNABINOIDS (THC) < 50 (50ng/ml); URINE COCAINE < 300 (300ng/ml); URINE METHADONE < 300 (300ng/ml); URINE OPIATES < 300 (300ng/ml); URINE PHENCYCLIDINE < 25 (25ng/ml)
[2017-07-06 21:26] LABS: BACTERIA TRACE; EPITHELIAL CELLS 0-2; RBC 0-2 rbc/hpf (0-2)
[2017-07-07 07:51] VITALS: BP 126/64
[2017-07-07 20:00] VITALS: BP 121/62
[2017-07-08 11:15] VITALS: BP 118/64
[2017-07-08 20:00] VITALS: BP 121/72
[2017-07-09 08:15] VITALS: BP 104/67
[2017-07-09 20:00] VITALS: BP 114/66
[2017-07-10 08:05] VITALS: BP 121/54
[2017-07-10 08:36] LABS: BASO % 0.6 % (0.0-1.0); EOS # 0.1 10*3/uL (0.0-0.4); EOS % 1.8 % (1.0-4.0); HEMATOCRIT 37.3 % (42.0-52.0); LYMPH # 1.8 10*3/uL (1.3-4.4); LYMPH % 24.3 % (27.0-41.0); MEAN CELL VOLUME 88.4 fl (80.0-94.0); MEAN CORPUSCULAR HGB 30.8 pg (27.0-31.0); MEAN CORPUSCULAR HGB CONC 34.9 g/dl (33.0-37.0); MEAN PLATELET VOLUME 9.4 fl (9.6-12.3); MONO # 0.5 10*3/uL (0.1-1.0); MONO % 6.7 % (3.0-9.0); NEUT # 4.8 10*3/uL (2.3-7.9); NEUT % 66.3 % (47.0-73.0); PLATELET COUNT AUTOMATED 192 10*3/uL (130-400); RED BLOOD COUNT 4.22 10*6/uL (4.50-5.90); WHITE BLOOD COUNT 7.3 10*3/uL (4.8-10.8)
[2017-07-10 09:06] LABS: ALBUMIN 3.9 gm/dl (3.1-4.5); CREATININE 1.74 mg/dL (0.70-1.30); POTASSIUM 4.4 mmol/L (3.5-5.1); TOTAL PROTEIN 7.7 gm/dL (6.4-8.2)
[2017-07-10 20:45] VITALS: BP 116/51
[2017-07-11 08:03] VITALS: BP 112/65
[2017-07-11 20:20] VITALS: BP 116/66
[2017-07-12 06:55] LABS: CREATININE 1.56 mg/dL (0.70-1.30); POTASSIUM 4.4 mmol/L (3.5-5.1)
[2017-07-12 08:21] VITALS: BP 131/63
[2017-07-12 20:00] VITALS: BP 118/70
[2017-07-13 08:00] VITALS: BP 126/52
[2017-07-13] MEDS ORDERED: BENZTROPINE MESY1 MG PO (10:33)
[2017-07-13] MEDS ORDERED: ARIPIPRAZOLE15 MG PO (10:33)
[2017-07-13] MEDS ORDERED: ATARAX,VISTARIL50 MG PO (10:33)
[2017-07-13] MEDS ORDERED: ARISTADA882 MG/3.2 IM (10:33)
[2017-07-13] MEDS ORDERED: MIRTAZAPINE30 M2 PO (10:33)
== END 2017-07-13 16:40 | disposition home or self-care (01) | DRG 885 ==
LOC: 3N 19:54
PROVIDERS: Internal Medicine; Psychiatry & Neurology Psychiatry; Registered Nurse
DX: F25.9 Schizoaffective disorder, unspecified (principal); E11.22 Type 2 diabetes mellitus with diabetic chronic kidney disease; N18.3 Chronic kidney disease, stage 3 (moderate); F23 Brief psychotic disorder; I12.9 Hypertensive chronic kidney disease with stage 1 through stage 4 chronic kidney disease, or unspecified chronic kidney disease; I25.10 Atherosclerotic heart disease of native coronary artery without angina pectoris; E78.5 Hyperlipidemia, unspecified; E03.9 Hypothyroidism, unspecified; F31.30 Bipolar disorder, current episode depressed, mild or moderate severity, unspecified; I67.9 Cerebrovascular disease, unspecified; E66.9 Obesity, unspecified; F41.9 Anxiety disorder, unspecified; Z90.49 Acquired absence of other specified parts of digestive tract; Z95.5 Presence of coronary angioplasty implant and graft; Z87.891 Personal history of nicotine dependence; Z86.73 Personal history of transient ischemic attack (TIA), and cerebral infarction without residual deficits; Z91.041 Radiographic dye allergy status; Z79.899 Other long term (current) drug therapy; Z68.28 Body mass index [BMI] 28.0-28.9, adult

== ENCOUNTER 2017-08-26 12:27 | Emergency (ER) | payer OTHER, MEDICARE ==
[~2017-08-26] VITALS: Ht 182.8 cm; Wt 99.8 kg
[~2017-08-26 12:27] MED LIST changes: +ARIPIPRAZOLE15 MG PO; +ARISTADA882 MG/3.2 IM; +ATARAX,VISTARIL50 MG PO; +BENZTROPINE MESY1 MG PO; +D3-20002000 UNIT PO; +INVEGA TRI546 MG/1.7 IM; +IRON325 M3 PO; +MEN'S ONE DAIL1 EACH PO; +MIRTAZAPINE30 M2 PO; +VISTARIL50 MG PO
[2017-08-26] MEDS ORDERED: LOPRESSOR25 MG PO (13:33)
[2017-08-26] MEDS ORDERED: LISINOPRIL5 MG PO (13:33)
[2017-08-26 13:38] LABS: BASO % 0.7 % (0.0-1.0); EOS # 0.2 10*3/uL (0.0-0.4); EOS % 2.7 % (1.0-4.0); HEMATOCRIT 39.7 % (42.0-52.0); HEMOGLOBIN 13.7 g/dl (14.0-18.0); LYMPH # 1.3 10*3/uL (1.3-4.4); LYMPH % 23.7 % (27.0-41.0); MEAN CELL VOLUME 86.5 fl (80.0-94.0); MEAN CORPUSCULAR HGB 29.8 pg (27.0-31.0); MEAN CORPUSCULAR HGB CONC 34.5 g/dl (33.0-37.0); MEAN PLATELET VOLUME 9.4 fl (9.6-12.3); MONO # 0.4 10*3/uL (0.1-1.0); MONO % 7.5 % (3.0-9.0); NEUT # 3.7 10*3/uL (2.3-7.9); NEUT % 65.2 % (47.0-73.0); PLATELET COUNT AUTOMATED 167 10*3/uL (130-400); RED BLOOD COUNT 4.59 10*6/uL (4.50-5.90); RED CELL DISTRI WIDTH 11.9 % (0-14.5); WHITE BLOOD COUNT 5.6 10*3/uL (4.8-10.8)
[2017-08-26 13:52] LABS: ALBUMIN 3.9 gm/dl (3.1-4.5); ALKALINE PHOSPHATASE 92 U/L (45-117); BUN 8 mg/dl (7-24); CHLORIDE 104 mmol/L (98-107); CREATININE 1.26 mg/dL (0.70-1.30); POTASSIUM 3.7 mmol/L (3.5-5.1); SGOT/AST 26 IU/L (3-35); SGPT/ALT 41 U/L (12-78); SODIUM 140 mmol/L (136-145); TOTAL PROTEIN 8.2 gm/dL (6.4-8.2)
== END 2017-08-26 14:49 | disposition home or self-care (01) ==
LOC: ED 12:27
PROVIDERS: Emergency Medicine
DX: I10 Essential (primary) hypertension (principal); I25.10 Atherosclerotic heart disease of native coronary artery without angina pectoris; I12.9 Hypertensive chronic kidney disease with stage 1 through stage 4 chronic kidney disease, or unspecified chronic kidney disease; E11.22 Type 2 diabetes mellitus with diabetic chronic kidney disease; N18.3 Chronic kidney disease, stage 3 (moderate); E03.9 Hypothyroidism, unspecified; E66.9 Obesity, unspecified; Z87.891 Personal history of nicotine dependence; Z86.73 Personal history of transient ischemic attack (TIA), and cerebral infarction without residual deficits; Z90.49 Acquired absence of other specified parts of digestive tract; Z95.5 Presence of coronary angioplasty implant and graft; Z98.890 Other specified postprocedural states; Z79.899 Other long term (current) drug therapy; Z91.041 Radiographic dye allergy status; Z79.82 Long term (current) use of aspirin

== ENCOUNTER 2017-11-07 21:19 | Inpatient (IN) | payer OTHER, MEDICARE ==
[~2017-11-07] VITALS: Ht 182.8 cm; Wt 95.3 kg
--- NOTE | ~2017-11-07 | DS ---
[place], [place] DISCHARGE SUMMARY NAME: TREVON MIR [facility] #: [id number] UNIT #: [id number] ROOM: 314 DOCTOR: SHASHA RENTERIA MD BIRTHDATE: [birth year] DOS: 11/16/2017 CHIEF COMPLAINT: "My left me, I am all alone, I don't know what to do." HISTORY OF PRESENT ILLNESS: This is a 57-year-old white male well known to me from previous admissions here to the [facility]. The patient presented to the Emergency Room at [facility] with worsening psychotic symptoms. He endorsed extreme auditory hallucinations with significant paranoia. The patient reports he has been compliant with his medication and has been receiving his Aristada injection on time; however, his caregiver did go to his home and found a large bowl with over 300 pills in it and stated that it does not appear that he was taking any of his oral medications. The patient endorsed poor sleep and appetite, anergia, anhedonia, hopeless, helpless feelings and a decreased ability to care for self. He was admitted to rule out any organic factors, to re-stabilize on medication and to engage in individual and ashley milieu activity. PAST MEDICAL HISTORY: Remarkable for coronary artery disease, CVA, chronic kidney disease stage 3, diabetes, hypertension, hyperlipidemia, hypothyroidism, obesity, vitamin D deficiency and a lengthy history of schizoaffective disorder. SUMMARY OF HOSPITAL COURSE: The patient was admitted to the unit where screening examinations did show him to have a low normal vitamin B12 level of 281. He was started on vitamin B12 injections of 1000 mcg IM monthly. Given the fact that he decompensated well receiving the Aristada injections, the Aristada injections were discontinued. He was started on Invega 6 mg a day. After tolerating this well for several days, he was loaded with Risperdal Consta 50 mg IM every 2 weeks. With this combination of medication, the patient's psychosis did break. He became much more compliant, much less delusional. He was able to engage readily in reasonable conversation and voiced positive plans for the future. The patient was able to also attend to his ADLs much better and he was able to shower, shave and dress himself and also know when it was time to take his medications. The patient tolerated these medicines well. There was no excess sedation, somnolence, tardive dyskinesia or extrapyramidal symptoms. After tolerating the medication for some time and stabilizing, it was felt that he had returned to baseline and it was reasonable to discharge him to have further followup at the [facility]. MENTAL STATUS AT DISCHARGE: The patient is alert and oriented to person, place and very approximate on time. Mood does seem to be strongly trending towards euthymia. Affect is more appropriate. There is no drew or hypomania. His delusions were pretty much under control. Memory for the most part was intact for recent, remote and intermediate. DIAGNOSIS UPON DISCHARGE: Schizoaffective disorder. PLAN: All of his prescriptions have been e scribed to [facility]. He will have followup at [facility]. They will be the people who are monitoring his medications including giving him the Risperdal Consta injections. [place], [place] DISCHARGE SUMMARY NAME: TREVON MIR UNIT #: [id number] ROOM: 314 DOCTOR: SHASHA RENTERIA MD BIRTHDATE: [birth year] The patient was discharged in medically stable, psychiatrically stable. His biopsychosocial needs are adequately being met by [facility]. SHASHA RENTERIA MD CM:VIOLETTE [phone] SHASHA RENTERIA MD 11/16/17 1847 interface
--- NOTE | ~2017-11-07 | PR ---
[place], [place] PROGRESS NOTE NAME: TREVON MIR UNIT #: [id number] ROOM: 314 DOCTOR: SHASHA RENTERIA MD BIRTHDATE: [birth year] DOS: 11/12/2017 CHIEF COMPLAINT: "I will take a shot as long as it is not in my super arm, look at my muscles, I'm like [place]." SUMMARY OF THE VISIT: The patient was interviewed in the dining area where he was sitting eating breakfast. He continues to be very bizarre and grandiose in his thinking. When I did discuss with him at length the possibility of taking another injection other than the Aristada, he did agree to do so as long as the shot was given in his hip and not in his arm. He continues to have bizarre reasons why he cannot take the shot one way or another. He did request that he no longer is offered the vitamin B12 injection and I did tell him that I would switch to the B12 tablets instead. Nurses report that he continues to exhibit significant mood lability and bizarre behavior throughout the day. He does seem to be tolerating the medication regimen well and is not exhibiting any sedation, somnolence, extrapyramidal symptoms or tardive dyskinesia. MENTAL STATUS: He is alert and oriented with some time gaps. Mood does seem to be labile and at times inappropriate. He remains grossly delusional. PLAN: I will go ahead and discontinue the attempts to do Invega Sustenna due to lack of availability. I will load him instead with Risperdal Consta 50 mg IM today and every 14 days thereafter. I will discontinue the vitamin B12 injection and instead offer him vitamin B12 tablets to help supplement his dietary deficiencies. We will engage in individual and ashley milieu activity with the plan to return to the least restrictive environment when psychiatrically stable. SHASHA RENTERIA MD CM:PNTRANS 9 [phone] SHASHA RENTERIA MD 11/12/17 1100 interface
--- NOTE | ~2017-11-07 | WRIGHTHP ---
[place], [place] PATIENT HISTORY AND PHYSICAL EXAM [id number] #: [id number] ROOM: 314 DOCTOR: SHASHA RENTERIA MD BIRTHDATE: [birth year] DOS: 11/09/2017 INITIAL PSYCHIATRIC EVALUATION CHIEF COMPLAINT: "My left me, I am all alone, I don't know what to do." HISTORY OF PRESENT ILLNESS: This is a 57-year-old white male well known to us due to multiple psychiatric admissions to the [facility] at [facility]. The patient presented to the Emergency Room at [facility] with worsening psychotic symptoms. He endorsed extreme auditory hallucinations with paranoia. The patient has not been compliant with his medication. In fact, his caregiver on the date of admission went to his home and found a large bowl with over 300 pills in it and she stated that he does not appear to be taking his medications. It is unclear if he has been even taking his Aristada injections. He was found to be grossly psychotic and very paranoid as well as disorganized and rambling. Because of the significance of his psychotic symptoms, it was felt that he represented a substantial risk of harm to self and others and he was admitted to the unit to rule out organic factors and to attempt to stabilize on medication, engaging in individual and ashley milieu activities. PAST MEDICAL HISTORY: Remarkable for coronary artery disease, CVA, chronic kidney disease stage 3, diabetes, hypertension, hyperlipidemia, hypothyroidism, obesity, vitamin D deficiency and a history of schizoaffective disorder. MENTAL STATUS: He is alert and oriented to person, place and time. Mood does seem to be wildly labile. He was on the edge of being irritable and then very quickly shifted to tears and was crying when talking about his leaving him. There is a great deal of paranoia and he talks about his place, being infested with rats and needing to get an electrician master. He did tend to jump from topic to topic and was very difficult to pin him down. He was tangential for the most part in his thinking. Memory for the most part is intact. DIAGNOSIS: Schizoaffective disorder. PLAN: Routine screening examination show him to have a low normal vitamin B12 level of 281. I will start him on vitamin B12 injection of 1000 mcg IM monthly. I will also start him on Invega 6 mg a day and consider utilizing an Invega Sustenna injection on him. I have come found from [facility] that he did receive his Aristada injection of 882 mg on 10/21/2017. It appears that this medicine has been less than effective than at controlling his psychosis and I will more than likely discontinue this. We will continue to engage him in individual and ashley milieu activity, returning to the least restrictive environment when stable. [place], [place] PATIENT HISTORY AND PHYSICAL EXAM NAME: TREVON MIR UNIT #: [id number] ROOM: [facility] DOCTOR: SHASHA RENTERIA MD BIRTHDATE: [birth year] SHASHA RENTERIA MD CM:HISPHYS:PATIENT HISTORY AND PHYSICAL EXAMINATION 0919 1014 SHASHA RENTERIA MD 11/09/17 1331 interface
--- NOTE | ~2017-11-07 | PR ---
[place], [place] PROGRESS NOTE NAME: TREVON MIR UNIT #: [id number] ROOM: 314 DOCTOR: SHASHA RENTERIA MD BIRTHDATE: [birth year] DOS: 11/11/2017 CHIEF COMPLAINT: "I am captain Ariana. I don't need any medicine. I don't want any drugs. I don't want to become addicted to anything." SUMMARY OF THE VISIT: The patient was interviewed both in the hallway and then later as he was sitting down in the dining area, interacting with a nurse. He continues to be very labile and is almost now more hypomanic if not frankly manic. Nurses report his mood swings have become very dramatic and he has become very grandiose during my conversation with him. He was refusing to take the vitamin D injection, stating that he did not want to be injected with any drugs and did not want to become an addict. His mood for the most part with me was one of significant mood lability and irrationality. He does seem to be tolerating the current medicines well and I see no tardive dyskinesia, extrapyramidal symptoms, or other side effects from the medicines themselves. MENTAL STATUS: He is alert and oriented with some time gaps. Mood is wildly labile and frankly hypomanic if not manic. He is grossly delusional as well. Memory has some gaps, but for the most part is intact. PLAN: Given the fact that he is tolerating the Invega well, I will load him with Invega Sustenna 234 mg IM today. If he will be compliant with it, I will also start him on Depakote 500 mg 3 times a day to attempt to decrease some of the mood lability and agitation. We will attempt to engage him in individual and ashley milieu activity, returning to the least restrictive environment when psychiatrically stable. SHASHA RENTERIA MD CM:PNTRANS 1001 1032 SHASHA RENTERIA MD 11/12/17 1059 interface
--- NOTE | ~2017-11-07 | PR ---
[place], [place] PROGRESS NOTE NAME: TREVON MIR UNIT #: [id number] ROOM: 314 DOCTOR: SHASHA NEIL MD BIRTHDATE: [birth year] DOS: 11/15/2017 CHIEF COMPLAINT: "I am feeling good, Dr. Neil, I am feeling real good. I am ready to go home." SUMMARY OF THE VISIT: The patient was interviewed as he was leaving the group therapy room. He engaged readily in conversation and reports that he feels well. He slept well and had a good breakfast. He still remains rather bizarre and flighty and mildly delusional, but he does redirect relatively easy. Nurses report he refused to have his valproic acid level checked this morning. MENTAL STATUS: He is alert and oriented. Mood does seem to be strongly trending towards euthymia. Affect is more appropriate. There is no drew, hypomania or gross psychosis. Memory is intact. PLAN: I will maintain his current psychotropic regimen, support and monitor, engage in individual and ashley milieu activity, returning to the least restrictive environment when psychiatrically stable. SHASHA NEIL MD CM:PNTRANS SHASHA NEIL MD 11/16/17 0930 interface
--- NOTE | ~2017-11-07 | PR ---
[place], [place] PROGRESS NOTE NAME: TREVON MIR UNIT #: [id number] ROOM: 314 DOCTOR: SHASHA RENTERIA MD BIRTHDATE: [birth year] DOS: 11/13/2017 CHIEF COMPLAINT: "Oh, I don't want to be shot up with any needles, I'm not a drug addict." SUMMARY OF THE VISIT: The patient was interviewed with the nurse present while he was in his room. He had refused to take the Risperdal Consta injection and I discussed at length with him the pros and cons and the rationale behind it. I did let him know that the fact that he was on the Aristada and decompensated nonetheless, I was concerned the Aristada was no longer meeting his needs. I also discussed that the Risperdal shot was given once every 2 weeks and ultimately it would take the place of the pills and that blood levels were maintained on a more consistent basis lessen the possibility of side effects. He ultimately agreed to take the injection after I discussed this. He does seem to be more reasonable, but he does still becomes extremely tangential and flighty. MENTAL STATUS: He is alert and oriented with time gaps. Mood is labile at times, but redirectable. He is rather tangential in his thinking and jumps from topic to topic, but can be redirected. PLAN: As mentioned previously, he will go ahead and receive the Risperdal Consta injection today. We will continue to support and monitor, engage in individual and ashley milieu activities, returning to the least restrictive environment when stable. SHASHA RENTERIA MD CM:PNTRANS 1032 1040 SHASHA RENTERIA MD 11/14/17 0852 interface
--- NOTE | ~2017-11-07 | PR ---
[place], [place] PROGRESS NOTE NAME: TREVON MIR UNIT #: [id number] ROOM: 314 DOCTOR: ADILIA PEARL DO BIRTHDATE: [birth year] DOS: CHIEF COMPLAINT: "I need bus assistant to help clean my house." SUMMARY OF THE VISIT: The patient was interviewed in the dining room worthy. He stated that he needed an bus assistant and talked with parking worker yesterday to potentially help him arrange to have an bus assistant eliminate his home of rats. He stays with his and no longer living there but the daughter lives upstairs. Per staff, he has continued to have auditory and visual hallucinations, states that he is ____ people who are not there, talking to people who are not there. He is intrusive and walking up and down the halls looking into other patients' rooms. He has screamed at staff requesting pain medication, cough drops and Ativan ____ other patients would receive theirs potential medication. They report that he slept 5 hours intermittently. MENTAL STATUS EXAMINATION: He is alert and oriented to person, place and time. His mood seems to be mildly labile. He is irritable at times and quickly shifts from tears and crying to anger and frustration. He has a great deal of paranoia with reported auditory and visual hallucinations. He is very tangential in his speech, seems to be ____. His memory for the most part is intact. PLAN: He was started on the vitamin B12 injections yesterday as well as the Invega 6 mg. We will discuss with pharmacy concerning the Invega Sustenna injections. His last aerosol injection was on 10/21/2017 and we will continue his other current psychotropic regimen with discussion with pharmacy as above. We will continue to engage him in individual and group activities with the plan to return him to the least restrictive environment when psychiatrically stable. ADILIA PEARL DO SHASHA RENTERIA MD CM:PNTRANS [place] 1118 ADILIA PEARL DO 11/10/17 7348 interface
--- NOTE | ~2017-11-07 | PR ---
[place], [place] PROGRESS NOTE NAME: TREVON MIR UNIT #: [id number] ROOM: 314 DOCTOR: SHASHA NEIL MD BIRTHDATE: [birth year] DOS: 11/14/2017 CHIEF COMPLAINT: "I will take that injection now Dr. eNil." SUMMARY OF THE VISIT: The patient was interviewed as he was sitting in the group therapy room. He motioned for me to come in. He asked if I could make certain that he get that injection today and then was anxious to be able to figure out when he would be able to leave the hospital. He does seem to be a little bit more goal directed this morning, little less tangential. He did later after we were done talking take the injection from the nurse without incident. MENTAL STATUS: He is alert and oriented. Mood does seem to be trending towards euthymia. Affect is more appropriate. There is no drew or hypomania. There is still delusional system present. Memory for the most part is intact. PLAN: I will go ahead and check a valproic acid level in the a.m. to ensure that it is therapeutic, continue to engage in individual and ashley milieu activities, returning to the least restrictive environment when stable. SHASHA NEIL MD CM:PNTRANS 1032 1046 SHASHA NEIL MD 11/14/17 1948 interface
[2017-11-07 21:22] VITALS: BP 156/73
[2017-11-07 21:48] LABS: BASO % 0.5 % (0.0-1.0); EOS # 0.1 10*3/uL (0.0-0.4); EOS % 1.5 % (1.0-4.0); HEMATOCRIT 42.6 % (42.0-52.0); HEMOGLOBIN 14.6 g/dl (14.0-18.0); LYMPH # 2.1 10*3/uL (1.3-4.4); LYMPH % 24.1 % (27.0-41.0); MEAN CELL VOLUME 85.5 fl (80.0-94.0); MEAN CORPUSCULAR HGB 29.3 pg (27.0-31.0); MEAN CORPUSCULAR HGB CONC 34.3 g/dl (33.0-37.0); MEAN PLATELET VOLUME 9.5 fl (9.6-12.3); MONO # 0.6 10*3/uL (0.1-1.0); MONO % 6.5 % (3.0-9.0); NEUT # 5.8 10*3/uL (2.3-7.9); NEUT % 67.2 % (47.0-73.0); PLATELET COUNT AUTOMATED 208 10*3/uL (130-400); RED BLOOD COUNT 4.98 10*6/uL (4.50-5.90); RED CELL DISTRI WIDTH 13.1 % (0-14.5); WHITE BLOOD COUNT 8.6 10*3/uL (4.8-10.8)
[2017-11-07 22:06] LABS: ALBUMIN 4.1 gm/dl (3.1-4.5); ALKALINE PHOSPHATASE 82 U/L (45-117); BUN 13 mg/dl (7-24); CHLORIDE 101 mmol/L (98-107); CREATININE 1.41 mg/dL (0.70-1.30); POTASSIUM 3.5 mmol/L (3.5-5.1); SGOT/AST 33 IU/L (3-35); SGPT/ALT 38 U/L (12-78); SODIUM 137 mmol/L (136-145); TOTAL PROTEIN 8.1 gm/dL (6.4-8.2)
[2017-11-07 22:09] LABS: ETHYL ALCOHOL < 3.0 mg/dl (<3)
[2017-11-07 22:10] LABS: ACETAMINOPHEN (TYLENOL) < 2.0 ug/ml (10-30)
[2017-11-07 22:14] VITALS: BP 148/76
[2017-11-08 05:19] LABS: BILIRUBIN NEGATIVE (NEGATIVE); BLOOD NEGATIVE (NEGATIVE); CLARITY CLEAR (CLEAR); COLOR YELLOW (YELLOW); GLUCOSE NEGATIVE (NEGATIVE); KETONE NEGATIVE (NEGATIVE); LEUKO ESTERASE NEGATIVE (NEGATIVE); NITRITE NEGATIVE (NEGATIVE); SPECIFIC GRAVITY <= 1.005 (1.005-1.030); UROBILINOGEN 0.2 E.U./dl (0.2-1.0)
[2017-11-08 05:27] LABS: WBC 0-2 wbc/hpf (0-5)
[2017-11-08 05:28] LABS: URINE AMPHETAMINES < 1000 (1000ng/ml); URINE BARBITURATES < 200 (200ng/ml); URINE BENZODIAZEPINES < 200 (200ng/ml); URINE CANNABINOIDS (THC) < 50 (50ng/ml); URINE COCAINE < 300 (300ng/ml); URINE METHADONE < 300 (300ng/ml); URINE OPIATES < 300 (300ng/ml)
[2017-11-08 05:39] LABS: URINE PHENCYCLIDINE < 25 (25ng/ml)
[2017-11-08 06:39] VITALS: BP 135/64
[2017-11-08 07:15] VITALS: BP 125/72
[2017-11-08 15:50] VITALS: BP 121/65
[2017-11-08 16:01] VITALS: BP 121/65
[2017-11-08] MEDS ORDERED: REMERON15 M2 PO (16:23)
[2017-11-08 16:34] LABS: BASO % 0.5 % (0.0-1.0); EOS # 0.1 10*3/uL (0.0-0.4); EOS % 2.1 % (1.0-4.0); HEMATOCRIT 41.7 % (42.0-52.0); HEMOGLOBIN 14.2 g/dl (14.0-18.0); LYMPH # 1.5 10*3/uL (1.3-4.4); LYMPH % 23.5 % (27.0-41.0); MEAN CELL VOLUME 85.8 fl (80.0-94.0); MEAN CORPUSCULAR HGB 29.2 pg (27.0-31.0); MEAN CORPUSCULAR HGB CONC 34.1 g/dl (33.0-37.0); MEAN PLATELET VOLUME 9.9 fl (9.6-12.3); MONO # 0.5 10*3/uL (0.1-1.0); MONO % 7.8 % (3.0-9.0); NEUT # 4.1 10*3/uL (2.3-7.9); NEUT % 65.9 % (47.0-73.0); PLATELET COUNT AUTOMATED 202 10*3/uL (130-400); RED BLOOD COUNT 4.86 10*6/uL (4.50-5.90); RED CELL DISTRI WIDTH 12.8 % (0-14.5); WHITE BLOOD COUNT 6.2 10*3/uL (4.8-10.8)
[2017-11-08 16:48] LABS: ALBUMIN 3.6 gm/dl (3.1-4.5); ALKALINE PHOSPHATASE 81 U/L (45-117); BUN 16 mg/dl (7-24); CHLORIDE 103 mmol/L (98-107); CHOLESTEROL 128 mg/dL (<200); HDL CHOLESTEROL 56 mg/dl (40-60); LDL CHOLESTEROL 50 mg/dL (9-159); POTASSIUM 4.2 mmol/L (3.5-5.1); SGOT/AST 29 IU/L (3-35); SGPT/ALT 37 U/L (12-78); SODIUM 139 mmol/L (136-145); TOTAL PROTEIN 7.4 gm/dL (6.4-8.2); TRIGLYCERIDES 112 mg/dl (<150); VLDL CHOLESTEROL 22 mg/dL (6-40)
[2017-11-08 16:55] LABS: VITAMIN D, 25-HYDROXY 42.8 ng/mL (30-100)
[2017-11-08 20:09] VITALS: BP 102/66
[2017-11-09 07:56] VITALS: BP 120/56
[2017-11-09 10:25] LABS: BILIRUBIN NEGATIVE (NEGATIVE); BLOOD NEGATIVE (NEGATIVE); CLARITY CLEAR (CLEAR); COLOR YELLOW (YELLOW); GLUCOSE NEGATIVE (NEGATIVE); KETONE NEGATIVE (NEGATIVE); LEUKO ESTERASE NEGATIVE (NEGATIVE); NITRITE NEGATIVE (NEGATIVE); UROBILINOGEN 0.2 E.U./dl (0.2-1.0)
[2017-11-09 10:40] LABS: EPITHELIAL CELLS 0-2; WBC 0-2 wbc/hpf (0-5)
[2017-11-09 20:00] VITALS: BP 102/60
[2017-11-10 07:54] VITALS: BP 130/76
[2017-11-10 20:00] VITALS: BP 100/62
[2017-11-11 07:43] VITALS: BP 124/65
[2017-11-11 19:36] VITALS: BP 112/64
[2017-11-12 07:50] VITALS: BP 112/66
[2017-11-12 20:00] VITALS: BP 121/60
[2017-11-13 08:02] VITALS: BP 126/62
[2017-11-13 20:00] VITALS: BP 115/50
[2017-11-14 07:49] VITALS: BP 125/66
[2017-11-14 20:21] VITALS: BP 115/41
[2017-11-14 20:41] VITALS: BP 120/75
[2017-11-15 07:39] VITALS: BP 132/67
[2017-11-15 20:00] VITALS: BP 116/81
[2017-11-16 07:50] VITALS: BP 110/61
[2017-11-16] MEDS ORDERED: RISPERDAL CONST50 MG IM (10:08)
[2017-11-16] MEDS ORDERED: PALIPERIDONE ER6 MG PO (10:08)
[2017-11-16] MEDS ORDERED: DIVALPROEX SOD500 MG PO (10:08)
[2017-11-16] MEDS ORDERED: BENZTROPINE MESY1 MG PO (10:08)
[2017-11-16] MEDS ORDERED: MIRTAZAPINE15 M2 PO (10:08)
== END 2017-11-16 12:36 | disposition home or self-care (01) | DRG 885 ==
LOC: ED 21:19 → 3N 11-08 14:38
PROVIDERS: Emergency Medicine Emergency Medical Services; Psychiatry & Neurology Psychiatry
DX: F25.9 Schizoaffective disorder, unspecified (principal); E11.22 Type 2 diabetes mellitus with diabetic chronic kidney disease; N18.3 Chronic kidney disease, stage 3 (moderate); F31.30 Bipolar disorder, current episode depressed, mild or moderate severity, unspecified; I25.10 Atherosclerotic heart disease of native coronary artery without angina pectoris; I12.9 Hypertensive chronic kidney disease with stage 1 through stage 4 chronic kidney disease, or unspecified chronic kidney disease; E78.5 Hyperlipidemia, unspecified; E03.9 Hypothyroidism, unspecified; E66.9 Obesity, unspecified; F41.9 Anxiety disorder, unspecified; Z86.73 Personal history of transient ischemic attack (TIA), and cerebral infarction without residual deficits; D72.810 Lymphocytopenia; E55.9 Vitamin D deficiency, unspecified; Z91.041 Radiographic dye allergy status; Z90.49 Acquired absence of other specified parts of digestive tract; Z98.61 Coronary angioplasty status; Z87.891 Personal history of nicotine dependence; Z68.29 Body mass index [BMI] 29.0-29.9, adult; Z79.4 Long term (current) use of insulin

== ENCOUNTER 2018-03-19 22:28 | Inpatient (IN) | payer OTHER, MEDICARE ==
[~2018-03-19] VITALS: Ht 177.8 cm; Wt 98.5 kg
--- NOTE | ~2018-03-19 | PN ---
[place], [place] PROGRESS NOTE NAME: TREVON MIR UNIT #: [id number] ROOM: 310 DOCTOR: SHASHA RENTERIA MD BIRTHDATE: [birth year] DATE: 03/23/18 ADDENDUM 04/02/18832 DR. RENTERIA: Above note reviewed. Agree with observations, recommendations, and overall treatment plan. SHASHA RENTERIA MD CM:PNTRANS 2 1009 SHASHA RENTERIA MD 04/11/18 1010 MARY REECE MIS.LLR
--- NOTE | ~2018-03-19 | DS ---
[place], [place] DISCHARGE SUMMARY [id number] UN[facility] #: [id number] ROOM: 310 DOCTOR: SHASHA RENTERIA MD BIRTHDATE: [birth year] DOS: 03/28/2018 CHIEF COMPLAINT: "The voices were getting bad and I got so depressed." HISTORY OF PRESENT ILLNESS: This is a 58-year-old white male well known to me due to multiple admissions here to the [facility]. The patient presented here after medical clearance from [facility] where he initially presented with a chief complaint of worsening psychosis. The patient reports that he was being charged with rape and hears voices telling him that he is a bad person and that people may arrest him and take him to alf. The patient reports that the hallucinations have become so problematic. He cannot sleep. He is not attending to his ADLs and he has been having fleeting suicidal thoughts. He is admitted now to rule out organic factors and attempt to stabilize on medication, returning then to the least restrictive environment when psychiatrically stable. PAST MEDICAL HISTORY: Remarkable for multiple psychiatric admissions as well as coronary artery disease, CVA, chronic kidney disease stage 3, diabetes, hypertension, hyperlipidemia, hypothyroidism, obesity and vitamin B deficiency. SUMMARY OF HOSPITAL COURSE: The patient was admitted to the unit where he was restarted on Invega 6 mg a day. After tolerating this well, he was reloaded with Invega Sustenna 234 mg IM and a secondary loading dose of 156 mg was given. His Remeron was discontinued in lieu of Celexa 20 mg a day to decrease his libido. The patient was somewhat sexually inappropriate at times. As it turned out after his admission, it was found that the patient does have pending rape charges against him. We were going to attempt to place into a care home, but because of the pending charges no care home would accept him and he had to return back to his previous home situation. He had improved sufficiently with the change in medications, so that the voices were not problematic. He was tolerating the Invega and Celexa well without extrapyramidal symptoms, sedation, somnolence or tardive dyskinesia. MENTAL STATUS AT DISCHARGE: The patient was alert and oriented. Mood was euthymic. Affect appropriate. There was no drew or hypomania. The psychotic symptoms had decreased in frequency and intensity. He was not suicidal or homicidal, or self-injurious. He was discharged then to return home. FINAL DIAGNOSIS: Schizoaffective disorder. PLAN: All of his prescriptions have been e-scribed to [facility]. He will return home. He will have outpatient followup with [facility]. [place], [place] DISCHARGE SUMMARY NAME: TREVON MIR UNIT #: [id number] ROOM: 310 DOCTOR: SHASHA RENTERIA MD BIRTHDATE: [birth year] SHASHA RENTERIA MD CM:DISCHPOLA 1026 1401 SHASHA RENTERIA MD 03/28/18 1359 interface
--- NOTE | ~2018-03-19 | WRIGHTHP ---
[place], [place] PATIENT HISTORY AND PHYSICAL EXAM NAME: TREVON MIR UNIT #: [id number] ROOM: 310 DOCTOR: LAVERNE SELLERS MD BIRTHDATE: [birth year] DOS: 03/20/2018 REASON FOR HOSPITALIZATION: Increased auditory hallucination and psychotic behavior. HISTORY OF PRESENT ILLNESS: The patient seen and chart reviewed. The patient is a 58-year-old white male with long history of schizophrenia versus schizoaffective disorder, who was sent to the Psychiatric Unit after medical clearance at [facility]. The patient actually requested to be taken to the ER because he was hearing voices. The patient got cleared medically into the ER and then sent to the psychiatric unit for further care and stabilization. The patient was pleasant and cooperative during the time of the interview. He reports hearing voices. He also talked about being charged for rape. The patient mentioned that he is afraid that the police may arrest him and take him to the long-term. He said that he also talked about a hallucination telling him to hurt himself and that he is a bad mary anne. He said that he feels depressed and down because of the voices and he had to "work my mind to feel better." He also said that he is afraid of dying. He denied any symptoms of drew or hypomania. PAST MEDICAL HISTORY: Significant for coronary artery disease, CVA, chronic kidney disease stage 3, diabetes, hypertension, hyperlipidemia, hypothyroidism, obesity, vitamin B deficiency. PAST PSYCHIATRIC HISTORY: The patient reported multiple prior psychiatric hospitalizations. Denied prior suicide attempt. No suicide in the family. SUBSTANCE ABUSE HISTORY: The patient denied any drugs or alcohol. SOCIAL HISTORY: He mentioned that he was born and raised in [place], [place], had a GED. He claims that he is for 25 years, but . He also states that he has a daughter who is a 25-year-old and studying to become an CONTACT CENTER ASSISTANT. He said that he lives between the halfway and his own apartment. MENTAL STATUS EXAMINATION: Pleasant and cooperative. He was alert and oriented to day, date, month and year. He described his mood as "okay." Affect was flat, constricted. Thought processes are goal directed with some flight of idea loosening of association. He reports auditory hallucination, command type. Denied any visual hallucination. He also reports paranoia. Denied any suicidal ideation, intent or plan. He also denied any homicidal ideation, intent or plan. Insight and judgment was poor to fair. ASSESSMENT: Schizoaffective disorder. PLAN: 1. I will restart him back on Invega 6 mg at night with a plan to give him a long-acting injection. 2. Continue redirection and supportive care. [place], [place] PATIENT HISTORY AND PHYSICAL EXAM NAME: TREVON MIR UNIT #: [id number] ROOM: 310 DOCTOR: LAVERNE SELLERS MD BIRTHDATE: [birth year] 3. Encourage activities in groups. 4. Need to get collateral information. LAVERNE SELLERS MD CM:HISPHYS:PATIENT HISTORY AND PHYSICAL EXAMINATION 0937 1122 LAVERNE SELLERS MD 03/20/18 1120 interface
--- NOTE | ~2018-03-19 | PR ---
[place], [place] PROGRESS NOTE NAME: TREVON MIR UNIT #: [id number] ROOM: 310 DOCTOR: SHASHA RENTERIA MD BIRTHDATE: [birth year] DOS: 03/21/2018 CHIEF COMPLAINT: "The voices are bad and my hands are shaking." SUMMARY OF THE VISIT: The patient was interviewed as he was sitting in the group therapy room engaging in activities. He stopped and engaged in conversation with me. He did seem preoccupied as if attending to unforeseen others. His responses tended to be short and simple and he was rather disjointed. MENTAL STATUS: He is alert and oriented to person and place only to talk and approximate to time. Mood does seem to be still labile. Affect inappropriate. He endorses significant psychotic symptoms. Memory has some gaps. PLAN: His vitamin B12 level was low normal at 282. I will start a vitamin B12 injection of 1000 mcg IM monthly. I will discontinue his PRNs of Haldol and Benadryl and instead use Ativan 2 mg p.o. q.4 as needed, also add Artane 2 mg t.i.d. straight to try to decrease his tremors, engage in individual and ashley milieu activity, returning to the least restrictive environment when psychiatrically stable. SHASHA RENTERIA MD CM:PNTRANS 1007 1208 SHASHA RENTERIA MD 03/21/18 1206 interface
--- NOTE | ~2018-03-19 | PN ---
[place], [place] PROGRESS NOTE NAME: TREVON MIR UNIT #: [id number] ROOM: 310 DOCTOR: SHASHA RENTERIA MD BIRTHDATE: [birth year] DATE: 03/24/18 ADDENDUM 04/02/18832 DR. RENTERIA: Above note reviewed. Agree with observations, recommendations, and overall treatment plan. SHASHA RENTERIA MD CM:PNTRANS 2 SHASHA RENTERIA MD 04/11/18 1009 MARY REECE MIS.LLR
--- NOTE | ~2018-03-19 | PN ---
[place], [place] PROGRESS NOTE NAME: TREVON MIR UNIT #: [id number] ROOM: 310 DOCTOR: SHASHA RENTERIA MD BIRTHDATE: [birth year] DATE: 04/11/18 ADDENDUM 04/02/18832 DR. RENTERIA: Above note reviewed. Agree with observations, recommendations, and overall treatment plan. SHASHA RENTERIA MD CM:PNTRANS 2 1010 SHASHA RENTERIA MD 04/11/18 1010 MARY REECE MIS.LLR
[~2018-03-19 22:28] MED LIST changes: +PALIPERIDONE ER6 MG PO; +REMERON15 M2 PO; +RISPERDAL CONST50 MG IM
[2018-03-19] MEDS ORDERED: PHENYTOIN100 MG PO (22:48)
[2018-03-19] MEDS ORDERED: BENZTROPINE MESY1 MG PO (22:49)
[2018-03-20] VITALS: BP 128/67
[2018-03-20 00:29] VITALS: BP 128/67
[2018-03-20] MEDS ORDERED: REMERON15 M2 PO (00:44)
[2018-03-20] MEDS ORDERED: CLARITIN10 MG PO (00:44)
[2018-03-20] MEDS ORDERED: LOPRESSOR25 MG PO (00:45)
[2018-03-20] MEDS ORDERED: DEPAKOTE500 MG PO (00:45)
[2018-03-20] MEDS ORDERED: LISINOPRIL5 MG PO (00:51)
[2018-03-20] MEDS ORDERED: MEN'S ONE DAIL1 EACH PO (00:53)
[2018-03-20] MEDS ORDERED: IRON325 M1 PO (00:53)
[2018-03-20 06:19] LABS: BASO % 0.9 % (0.0-1.0); EOS # 0.1 10*3/uL (0.0-0.4); EOS % 1.8 % (1.0-4.0); HEMATOCRIT 36.3 % (42.0-52.0); LYMPH # 1.6 10*3/uL (1.3-4.4); LYMPH % 36.5 % (27.0-41.0); MEAN CELL VOLUME 93.1 fl (80.0-94.0); MEAN CORPUSCULAR HGB 30.8 pg (27.0-31.0); MEAN CORPUSCULAR HGB CONC 33.1 g/dl (33.0-37.0); MONO # 0.5 10*3/uL (0.1-1.0); NEUT # 2.3 10*3/uL (2.3-7.9); NEUT % 50.6 % (47.0-73.0); PLATELET COUNT AUTOMATED 140 10*3/uL (130-400); WHITE BLOOD COUNT 4.5 10*3/uL (4.8-10.8)
[2018-03-20 06:49] LABS: ALBUMIN 3.3 gm/dl (3.1-4.5); ALKALINE PHOSPHATASE 45 U/L (45-117); BUN 23 mg/dl (7-24); CHLORIDE 108 mmol/L (98-107); CHOLESTEROL 121 mg/dL (<200); CREATININE 1.56 mg/dL (0.70-1.30); HDL CHOLESTEROL 46 mg/dl (40-60); LDL CHOLESTEROL 60 mg/dL (9-159); SGOT/AST 17 IU/L (3-35); SGPT/ALT 23 U/L (12-78); SODIUM 144 mmol/L (136-145); TOTAL PROTEIN 6.6 gm/dL (6.4-8.2); TRIGLYCERIDES 76 mg/dl (<150); VLDL CHOLESTEROL 15 mg/dL (6-40)
[2018-03-20 07:17] LABS: PHENYTOIN (DILANTIN) < 0.4 ug/ml (10-20)
[2018-03-20 07:20] LABS: BILIRUBIN NEGATIVE (NEGATIVE); BLOOD NEGATIVE (NEGATIVE); CLARITY CLEAR (CLEAR); COLOR YELLOW (YELLOW); GLUCOSE NEGATIVE (NEGATIVE); KETONE NEGATIVE (NEGATIVE); LEUKO ESTERASE NEGATIVE (NEGATIVE); NITRITE NEGATIVE (NEGATIVE); SPECIFIC GRAVITY 1.015 (1.005-1.030); UROBILINOGEN 0.2 E.U./dl (0.2-1.0)
[2018-03-20 07:42] VITALS: BP 125/65
[2018-03-20 08:17] LABS: VITAMIN D, 25-HYDROXY 33.6 ng/mL (30-100)
[2018-03-20 08:39] LABS: BACTERIA TRACE; MUCOUS TRACE; WBC 0-2 wbc/hpf (0-5)
[2018-03-20 19:43] VITALS: BP 125/70
[2018-03-21 07:48] VITALS: BP 103/52
[2018-03-21 20:00] VITALS: BP 105/51
[2018-03-22 07:13] VITALS: BP 106/54
[2018-03-22 19:53] VITALS: BP 116/60
[2018-03-23 07:21] VITALS: BP 110/57
[2018-03-23 08:12] VITALS: BP 98/70
[2018-03-23 19:49] VITALS: BP 114/61
[2018-03-24 08:03] VITALS: BP 116/59
[2018-03-24 20:11] VITALS: BP 119/60
[2018-03-25 07:59] VITALS: BP 112/64
[2018-03-25 19:55] VITALS: BP 116/74
[2018-03-26 07:51] VITALS: BP 108/64
[2018-03-26 19:52] VITALS: BP 112/68
[2018-03-27 07:56] VITALS: BP 110/70
[2018-03-27 19:51] VITALS: BP 114/68
[2018-03-28 08:08] VITALS: BP 112/69
[2018-03-28] MEDS ORDERED: CITALOPRAM20 MG PO (10:19)
[2018-03-28] MEDS ORDERED: INVEGA SUSTENN156 MG IM (10:19)
[2018-03-28] MEDS ORDERED: PALIPERIDONE ER6 MG PO (10:19)
[2018-03-28] MEDS ORDERED: TRIHEXYPHENIDYL2 M3 PO (10:19)
[2018-03-28] MEDS ORDERED: DIVALPROEX SOD500 MG PO (10:19)
[2018-03-28] MEDS ORDERED: B121000 MCG/1 IM (10:19)
== END 2018-03-28 12:28 | disposition home or self-care (01) | DRG 885 ==
LOC: 3N 22:28
PROVIDERS: Psychiatry & Neurology Psychiatry
DX: F20.0 Paranoid schizophrenia (principal); E55.9 Vitamin D deficiency, unspecified; I12.9 Hypertensive chronic kidney disease with stage 1 through stage 4 chronic kidney disease, or unspecified chronic kidney disease; N18.3 Chronic kidney disease, stage 3 (moderate); I67.9 Cerebrovascular disease, unspecified; F31.30 Bipolar disorder, current episode depressed, mild or moderate severity, unspecified; E66.09 Other obesity due to excess calories; F41.9 Anxiety disorder, unspecified; E11.22 Type 2 diabetes mellitus with diabetic chronic kidney disease; I25.10 Atherosclerotic heart disease of native coronary artery without angina pectoris; E03.9 Hypothyroidism, unspecified; E78.5 Hyperlipidemia, unspecified; Z86.73 Personal history of transient ischemic attack (TIA), and cerebral infarction without residual deficits; Z90.49 Acquired absence of other specified parts of digestive tract; Z95.5 Presence of coronary angioplasty implant and graft; Z87.891 Personal history of nicotine dependence; Z91.041 Radiographic dye allergy status; Z79.899 Other long term (current) drug therapy; Z79.82 Long term (current) use of aspirin; Z79.84 Long term (current) use of oral hypoglycemic drugs